=== PATIENT | female | born 1975 | race Caucasian/White ===

== ENCOUNTER → 2016-10-15 | Outpatient (CLI) | payer OTHER | LOC: RAD 09:55 | DX: M54.2 Cervicalgia (principal); M54.5 Low back pain; M54.05 Panniculitis affecting regions of neck and back, thoracolumbar region; M47.812 Spondylosis without myelopathy or radiculopathy, cervical region; M47.817 Spondylosis without myelopathy or radiculopathy, lumbosacral region; M47.16 Other spondylosis with myelopathy, lumbar region; M47.814 Spondylosis without myelopathy or radiculopathy, thoracic region | CPT/HCPCS: 72050; 72070; 72110 ==

== ENCOUNTER → 2016-11-08 | Outpatient (CLI) | payer OTHER | LOC: KOH-I 15:10 | DX: M06.9 Rheumatoid arthritis, unspecified (principal); L93.0 Discoid lupus erythematosus; E78.6 Lipoprotein deficiency; M47.812 Spondylosis without myelopathy or radiculopathy, cervical region | CPT/HCPCS: 72141 ==

== ENCOUNTER 2020-08-01 19:39 | Inpatient (IN) | payer OTHER ==
[~2020-08-01] VITALS: Ht 154.9 cm; Wt 40.8 kg
[~2020-08-01 19:39] MED LIST: ASPIR 8181 MG PO; ASPIRIN EC81 MG PO; ATORVASTATIN CA20 MG PO; AUGMENTIN 875-1 EACH PO; BENAZEPRIL-HCT1 EAC2 PO; CATAPRES 0.1MG0.1 MG PO; CLARITIN10 MG PO; CLEOCIN HCL300 MG PO; CLOPIDOGREL75 MG PO; CRESTOR10 MG PO; FLAGYL500 MG PO; FLUZONE QU60 MCG/015 IM; HYDROCHLOROTH12.5 MG PO; IBUPROFEN800 MG PO; INCRUSE ELLI62.5 MCG INH; K-DUR TAB 20 M20 MEQ PO; KLONOPIN TAB 00.5 MG PO; LACTULOSE PO; LEXAPRO20 MG PO; LOPRESSOR 25 MG25 MG PO; LUVOX TAB 100100 MG PO; MAG-OX 400 TAB400 MG PO; MIRALAX17 GM PO; NEURONTIN400 MG PO; NEURONTIN800 MG PO; NITROGLYCERIN0.4 MG SL; PROTONIX40 MG PO; RANEXA1000 MG PO; RANEXA500 MG PO; REGLAN5 MG PO; TAMSULOSIN HCL0.4 MG PO; TRAZODONE HCL100 MG PO; TYLENOL 500 MG500 MG PO; VENTOLIN HFA 66.7 GM INH; VITAMIN D250000 UNIT PO; WAL-ZYR10 M1 PO; ZOCOR10 MG PO; ZOFRAN4 MG PO
[2020-08-01 21:13] LABS: RED BLOOD COUNT 3.97 M/UL (4.00-5.10); WHITE BLOOD COUNT 14.2 K/UL (4.5-11.0)
[2020-08-02 01:39] LABS: HEMOGLOBIN 12.7 gm/dl (12.3-15.3); RED BLOOD COUNT 3.69 M/UL (4.00-5.10); WHITE BLOOD COUNT 12.5 K/UL (4.5-11.0)
[2020-08-02] MEDS ORDERED: ATORVASTATIN CA40 MG PO (04:24)
[2020-08-02] MEDS ORDERED: LEXAPRO20 MG PO (04:24)
[2020-08-03 05:54] LABS: HEMOGLOBIN 11.6 gm/dl (12.3-15.3); RED BLOOD COUNT 3.35 M/UL (4.00-5.10)
[2020-08-03 06:00] LABS: WHITE BLOOD COUNT 8.9 K/UL (4.5-11.0)
[2020-08-03 06:20] LABS: BUN/CREATININE RATIO 10 (0-10)
[2020-08-03 19:57] LABS: BUN/CREATININE RATIO 7 (0-10)
[2020-08-04 05:14] LABS: HEMOGLOBIN 10.6 gm/dl (12.3-15.3); RED BLOOD COUNT 3.02 M/UL (4.00-5.10); WHITE BLOOD COUNT 6.7 K/UL (4.5-11.0)
[2020-08-04 05:35] LABS: BUN/CREATININE RATIO 9 (0-10)
[2020-08-05 05:42] LABS: HEMOGLOBIN 10.2 gm/dl (12.3-15.3); RED BLOOD COUNT 2.94 M/UL (4.00-5.10); WHITE BLOOD COUNT 7.7 K/UL (4.5-11.0)
[2020-08-05 06:06] LABS: BUN/CREATININE RATIO 10 (0-10)
[2020-08-06 04:32] LABS: RED BLOOD COUNT 2.84 M/UL (4.00-5.10); WHITE BLOOD COUNT 7.5 K/UL (4.5-11.0)
[2020-08-06 05:02] LABS: BUN/CREATININE RATIO 12 (0-10)
[2020-08-07 03:27] LABS: HEMOGLOBIN 10.3 gm/dl (12.3-15.3); RED BLOOD COUNT 2.96 M/UL (4.00-5.10); WHITE BLOOD COUNT 7.6 K/UL (4.5-11.0)
[2020-08-07 04:01] LABS: BUN/CREATININE RATIO 10 (0-10)
[2020-08-08 05:07] LABS: HEMOGLOBIN 10.2 gm/dl (12.3-15.3); RED BLOOD COUNT 2.93 M/UL (4.00-5.10); WHITE BLOOD COUNT 6.8 K/UL (4.5-11.0)
[2020-08-08 05:37] LABS: BUN/CREATININE RATIO 13 (0-10)
[2020-08-09 05:24] LABS: HEMOGLOBIN 10.9 gm/dl (12.3-15.3); RED BLOOD COUNT 3.13 M/UL (4.00-5.10); WHITE BLOOD COUNT 6.2 K/UL (4.5-11.0)
[2020-08-09 05:51] LABS: BUN/CREATININE RATIO 18 (0-10)
[2020-08-10 06:42] LABS: HEMOGLOBIN 11.8 gm/dl (12.3-15.3); WHITE BLOOD COUNT 6.6 K/UL (4.5-11.0)
[2020-08-10 06:53] LABS: RED BLOOD COUNT 3.46 M/UL (4.00-5.10)
[2020-08-10 07:20] LABS: BUN/CREATININE RATIO 18 (0-10)
[2020-08-10 08:14] LABS: HIV SCREEN 4TH GENERATION WRFX Non Reactive (Non Reactive)
[2020-08-10] MEDS ORDERED: DRONABINOL2.5 MG PO (10:13)
[2020-08-10] MEDS ORDERED: IMODIUM CAP 2 MG2 MG PO (10:13)
[2020-08-10] MEDS ORDERED: K-PHOS NEUTRAL250 MG PO (10:13)
[2020-08-10] MEDS ORDERED: ALDACTONE 25MG25 MG PO (10:13)
[2020-08-10] MEDS ORDERED: PROTONIX40 MG PO (10:13)
[2020-08-10 10:14] LABS: HBSAG SCREEN Negative (Negative); HEP A AB, IGM Negative (Negative); HEP B CORE AB, IGM Negative (Negative); HEP C VIRUS AB <0.1 (0.0-0.9)
[2020-08-10] MEDS ORDERED: POTASSIUM CHLO20 ME1 PO (10:24)
[2020-08-10] MEDS ORDERED: DOXYCYCLINE HY100 MG PO (10:24)
[2020-08-10] MEDS ORDERED: LASIX20 MG PO (10:42)
[2020-08-10] MEDS ORDERED: PHENERGAN 12.12.5 M1 PO (10:42)
[2020-10-24 21:07] LABS: ALDOS/RENIN RATIO <.1 (0.0-30.0); ALDOSTERONE <1.0 ng/dL (0.0-30.0)
== END 2020-08-10 12:30 | disposition home or self-care (01) | DRG 871 ==
LOC: ER1 19:39 → CCU 23:05 → CDU 23:05 → CCU 08-02 04:17 → M/S 08-09 18:18
PROVIDERS: Internal Medicine; Physician Assistant; ADMIT Internal Medicine
DX: A41.9 Sepsis, unspecified organism (principal); R65.21 Severe sepsis with septic shock; J18.9 Pneumonia, unspecified organism; J96.01 Acute respiratory failure with hypoxia; N17.9 Acute kidney failure, unspecified; M62.82 Rhabdomyolysis; E87.2 Acidosis; Z20.828 Contact with and (suspected) exposure to other viral communicable diseases; E87.6 Hypokalemia; E83.42 Hypomagnesemia; E86.0 Dehydration; I25.10 Atherosclerotic heart disease of native coronary artery without angina pectoris; I10 Essential (primary) hypertension; M06.9 Rheumatoid arthritis, unspecified; Z90.710 Acquired absence of both cervix and uterus; F17.210 Nicotine dependence, cigarettes, uncomplicated; J44.9 Chronic obstructive pulmonary disease, unspecified; E83.39 Other disorders of phosphorus metabolism; E83.51 Hypocalcemia; D64.9 Anemia, unspecified; Z98.41 Cataract extraction status, right eye; Z96.1 Presence of intraocular lens; Z95.5 Presence of coronary angioplasty implant and graft; Z79.82 Long term (current) use of aspirin; K52.9 Noninfective gastroenteritis and colitis, unspecified; R00.9 Unspecified abnormalities of heart beat; K31.84 Gastroparesis; E87.70 Fluid overload, unspecified
CPT/HCPCS: ECHO; 36415; 71045; 71250; 80048; 80053; 80074; 80202; 80307; 81001; 82088; 82150; 82436; 82533; 82550; 82553; 82570; 83605; 83690; 83735; 83874; 83880; 84100; 84132; 84133; 84244; 84300; 84439; 84443; 84484; 85025; 86140; 87040; 87389; 87449; 89055; 93005; 93306; 94640; 94664; 94760; 96365; 96366; 96367; 96368; 96375; 99285; C9113; J0834; J1335; J1650; J1720; J1940; J2060; J2405; J2543; J2550; J2765; J3370; J3475; J3480; J7030; J7050; J7070; P9047; U0002

== ENCOUNTER → 2020-09-08 | Outpatient (CLI) | payer OTHER ==
[~2020-09-08] MED LIST changes: +ALDACTONE 25MG25 MG PO; +ATORVASTATIN CA40 MG PO; +DOXYCYCLINE HY100 MG PO; +DRONABINOL2.5 MG PO; +IMODIUM CAP 2 MG2 MG PO; +K-PHOS NEUTRAL250 MG PO; +LASIX20 MG PO; +PHENERGAN 12.12.5 M1 PO; +POTASSIUM CHLO20 ME1 PO
== END ==
LOC: KOH-I 11:24
DX: R11.2 Nausea with vomiting, unspecified (principal); K56.41 Fecal impaction
CPT/HCPCS: 74018

== ENCOUNTER → 2020-10-04 | Outpatient (CLI) | payer OTHER ==
[2020-10-04 12:57] LABS: HEMOGLOBIN 14.6 gm/dl (12.3-15.3); RED BLOOD COUNT 4.25 M/UL (4.00-5.10); WHITE BLOOD COUNT 8.8 K/UL (4.5-11.0)
[2020-10-04 13:21] LABS: BUN/CREATININE RATIO 12 (0-10)
[2020-10-05 14:14] LABS: RHEUMATOID ARTHRITIS FACTOR <10.0 IU/mL (0.0-13.9)
[2020-10-06 00:09] LABS: CCP ANTIBODIES IGG/IGA 4 units (0-19)
[2020-10-07 11:14] LABS: CHOLESTEROL, TOTAL 191 mg/dL (100-199); HDL-C 42 mg/dL (>39); HDL-P (TOTAL) 32.9 umol/L (>=30.5); LARGE HDL-P 5.5 umol/L (>=4.8); LARGE VLDL-P 28.9 nmol/L (<=2.7); LDL SIZE 20.3 nm (>20.5); LDL SIZE 20.3 nm (>=20.8); LDL-C 95 mg/dL (0-99); LDL-P 1436 nmol/L (<1000); LP-IR SCORE 87 (<=45); SMALL LDL-P 857 nmol/L (<=527); TRIGLYCERIDES 324 mg/dL (0-149); VLDL SIZE 67.5 nm (<=46.6)
[2020-10-08 22:11] LABS: 25-HYDROXY, VITAMIN D 59 ng/mL (.); 25-HYDROXY, VITAMIN D-2 54 ng/mL (.)
== END ==
LOC: LAB 11:02
PROVIDERS: Nurse Practitioner Family
DX: M25.50 Pain in unspecified joint (principal); D89.9 Disorder involving the immune mechanism, unspecified; R76.8 Other specified abnormal immunological findings in serum; R10.811 Right upper quadrant abdominal tenderness; I25.10 Atherosclerotic heart disease of native coronary artery without angina pectoris; I10 Essential (primary) hypertension; E78.2 Mixed hyperlipidemia; G60.3 Idiopathic progressive neuropathy; M06.09 Rheumatoid arthritis without rheumatoid factor, multiple sites
CPT/HCPCS: 36415; 80053; 82306; 82728; 83690; 84443; 84550; 85025; 85652; 86140; 86200; 86431

== ENCOUNTER → 2020-10-27 | Outpatient (CLI) | payer OTHER | LOC: KOH-I 09-29 09:45 | DX: R10.811 Right upper quadrant abdominal tenderness (principal); K82.8 Other specified diseases of gallbladder | CPT/HCPCS: 76705 ==

== ENCOUNTER → 2020-11-08 | Outpatient (CLI) | payer OTHER | LOC: NM 08:49 | DX: R11.2 Nausea with vomiting, unspecified (principal) | CPT/HCPCS: 78227; A9537; J2805 ==

== ENCOUNTER → 2020-11-17 | Outpatient (CLI) | payer OTHER | LOC: KOH-I 11:10 | DX: K59.09 Other constipation (principal) | CPT/HCPCS: 74018 ==

== ENCOUNTER → 2021-01-09 | Outpatient (CLI) | payer OTHER | LOC: HEART 5 09:00 | DX: R07.9 Chest pain, unspecified (principal); I25.89 Other forms of chronic ischemic heart disease | CPT/HCPCS: 78452; A9502; J2785 ==

== ENCOUNTER → 2021-02-08 | Outpatient (CLI) | payer OTHER ==
[2021-02-15 22:07] LABS: D001-IGE D PTERONYSSINUS <0.10 kU/L (Class 0); D002-IGE D FARINAE <0.10 kU/L (Class 0); E001-IGE CAT DANDER <0.10 kU/L (Class 0); E005-IGE DOG DANDER <0.10 kU/L (Class 0); G002-IGE BERMUDA GRASS <0.10 kU/L (Class 0); G006-IGE TIMOTHY GRASS <0.10 kU/L (Class 0); M001-IGE PENICILLIUM CHRYSOGEN <0.10 kU/L (Class 0); M002-IGE CLADOSPORIUM HERBARUM <0.10 kU/L (Class 0); M003-IGE ASPERGILLUS FUMIGATUS <0.10 kU/L (Class 0); M006-IGE ALTERNARIA ALTERNATA <0.10 kU/L (Class 0); T001-IGE MAPLE/BOX ELDER <0.10 kU/L (Class 0); T003-IGE COMMON SILVER BIRCH <0.10 kU/L (Class 0); T006-IGE CEDAR, MOUNTAIN <0.10 kU/L (Class 0); T007-IGE OAK, WHITE <0.10 kU/L (Class 0); T010-IGE WALNUT <0.10 kU/L (Class 0); T011-IGE MAPLE LEAF SYCAMORE <0.10 kU/L (Class 0); T014-IGE COTTONWOOD <0.10 kU/L (Class 0); T015-IGE ASH, WHITE <0.10 kU/L (Class 0); T070-IGE WHITE MULBERRY <0.10 kU/L (Class 0); W001-IGE RAGWEED, SHORT <0.10 kU/L (Class 0); W018-IGE SHEEP SORREL <0.10 kU/L (Class 0)
== END ==
LOC: LAB 16:14
PROVIDERS: Nurse Practitioner Family
DX: J30.89 Other allergic rhinitis (principal); J30.1 Allergic rhinitis due to pollen; Z91.018 Allergy to other foods; R21 Rash and other nonspecific skin eruption
CPT/HCPCS: 36415; 82785

== ENCOUNTER → 2021-07-26 | Outpatient (CLI) | payer OTHER | LOC: KOH-I 11:40 | DX: M25.511 Pain in right shoulder (principal); R05.9 Cough, unspecified; M54.2 Cervicalgia; M54.50 Low back pain, unspecified; S42.91XA Fracture of right shoulder girdle, part unspecified, initial encounter for closed fracture; M47.816 Spondylosis without myelopathy or radiculopathy, lumbar region; M47.812 Spondylosis without myelopathy or radiculopathy, cervical region | CPT/HCPCS: 71046; 72040; 72070; 72100; 73030 ==

== ENCOUNTER → 2021-08-06 | Outpatient (CLI) | payer OTHER | LOC: KOH-I 14:56 | DX: J20.9 Acute bronchitis, unspecified (principal); R07.82 Intercostal pain; Z20.822 Contact with and (suspected) exposure to COVID-19 | CPT/HCPCS: 71046 ==

== ENCOUNTER → 2021-11-27 | Outpatient (CLI) | payer OTHER | LOC: EMI 13:57 | DX: M54.50 Low back pain, unspecified (principal); M25.511 Pain in right shoulder; S42.91XA Fracture of right shoulder girdle, part unspecified, initial encounter for closed fracture | CPT/HCPCS: 72148; 73221 ==

== ENCOUNTER 2022-01-11 13:25 | Emergency (ER) | payer OTHER ==
[2022-01-11] MEDS ORDERED: NAPROSYN500 MG PO (15:16)
== END 2022-01-11 15:25 | disposition home or self-care (01) ==
LOC: ER1 13:25
DX: S20.212A Contusion of left front wall of thorax, initial encounter (principal); F17.210 Nicotine dependence, cigarettes, uncomplicated; I11.9 Hypertensive heart disease without heart failure; E78.5 Hyperlipidemia, unspecified; Z79.899 Other long term (current) drug therapy; W19.XXXA Unspecified fall, initial encounter; Y92.009 Unspecified place in unspecified non-institutional (private) residence as the place of occurrence of the external cause
CPT/HCPCS: 71111; 96372; 99283; J1885